=== PATIENT | female | born 1990 | race American Indian/Alaskan Native ===

== ENCOUNTER 2017-04-24 16:49 | Emergency (ER) | payer BC, MEDICAID ==
[2017-04-24 16:50] VITALS: BMI 34.3
[2017-04-24 17:53] VITALS: BP 129/76; PULSE 74; RESP 20; TEMP 98.4; O2SAT 99
--- NOTE | 2017-04-24 17:55 | C.PDOC ---
History Of Present Illness Noemi Weir is a 26 year old female who presents complaining of a cramping pain in her left forearm for the past 2 weeks. Pain is also at the left hand over the 4h metacarpal and its pharyngeal joint. No known injury or trauma to the area. There is no bruising or swelling. She works at [employer], where she lifts heavy objects. She states that if her arm is bent for too long, it becomes numb , but with movement all sensation returns. There is no limitation to ROM. PMD: None provided Time Seen by Provider: 04/24/17 17:45 Chief Complaint (Nursing): Finger,Hand,&Wrist History Per: Patient History/Exam Limitations: no limitations Onset/Duration Of Symptoms: Days (x 2 weeks) Current Symptoms Are (Timing): Still Present Exacerbating Factor(s): Strenuous Use Of Affected Area Past Medical History Reviewed: Historical Data, Nursing Documentation, Vital Signs Vital Signs: Last Vital Signs Temp 98.4 F 04/24/17 17:38 Pulse 74 04/24/17 17:38 Resp 20 04/24/17 17:38 BP 129/76 04/24/17 17:38 Pulse Ox 99 04/24/17 17:58 - Medical History PMH: No Chronic Diseases Surgical History: No Surg Hx - [facility] Procedures DELIVERY OF PRODUCTS OF CONCEPTION, EXTERNAL APPROACH (07/28/15) Family History: States: Unknown Family Hx - Social History Hx Alcohol Use: No Hx Substance Use: No - Immunization History Hx Tetanus Toxoid Vaccination: No Hx Influenza Vaccination: No Hx Pneumococcal Vaccination: No Review Of Systems Except As Marked, All Systems Reviewed And Found Negative. Musculoskeletal: Positive for: Arm Pain (Left forearm), Hand Pain (Left hand) Neurological: Positive for: Numbness (when arm bent for a period of time). Negative for: Weakness Physical Exam - Physical Exam Appears: Non-toxic, No Acute Distress Skin: Normal Color, Warm, Dry Head: Atraumatic, Normacephalic Eye(s): bilateral: Normal Inspection, PERRL, EOMI Nose: Normal Neck: Normal, Normal ROM Extremity: Normal ROM, No Tenderness (point tenderness), Capillary Refill (< 2 sec), No Deformity, No Swelling (or ecchymosis), Other (Neurovascularly intact) Pulses: Left Radial: Normal, Right Radial: Normal Neurological/Psych: Oriented x3, Normal Speech, Normal Cranial Nerves, Normal Motor, Normal Sensation, No Other (focal deficits) ED Course And Treatment O2 Sat by Pulse Oximetry: 99 (RA) Pulse Ox Interpretation: Normal - Other Rad Left hand X-Ray: Interpreted by Me Interpretation: No evidence of fracture or dislocation. Normal soft tissues Medical Decision Making Medical Decision Making: Time: 17:50 Initial Impression: 26 year old female with left arm and hand pain Initial Plan: * Ibuprofen 600 mg * X-Ray Left Hand * Reevaluation Disposition Counseled Patient/Family Regarding: Studies Performed, Diagnosis, Need For Followup, Rx Given - Disposition Referrals: Bay Wills III, MD [Staff Provider] - Disposition: HOME/ ROUTINE Disposition Time: 18:09 Condition: IMPROVED Prescriptions: Naproxen [Naprosyn] 1 tab PO BID PRN #25 tab PRN Reason: Pain Instructions: Tendinitis (ED) Forms: [facility] (Burkinan) - Clinical Impression Clinical Impression: Tendinitis of left forearm - Scribe Statement The provider has reviewed the documentation as recorded by the Scribkarlene Finn All medical record entries made by the Rosalbaibkarlene were at my direction and personally dictated by me. I have reviewed the chart and agree that the record accurately reflects my personal performance of the history, physical exam, medical decision making, and the department course for this patient. I have also personally directed, reviewed, and agree with the discharge instructions and disposition.
--- NOTE | 2017-04-24 18:33 | RAD ---
PROCEDURE: Left Hand Radiographs. HISTORY: hand pain COMPARISON: None. FINDINGS: BONES: No acute fracture or destructive bony lesion identified. JOINTS: Normal. No osteoarthritic changes. SOFT TISSUES: Normal. OTHER FINDINGS: None. IMPRESSION: Normal left hand radiographs.
== END 2017-04-24 18:24 | disposition home or self-care (01) ==
LOC: C.ER 16:49
DX: M77.9 Enthesopathy, unspecified (principal)